=== PATIENT | male | born 1990 | race Caucasian/White ===

== ENCOUNTER 2016-09-27 22:23 | Emergency (ER) | payer SELFPAY ==
[~2016-09-27] VITALS: Ht 180.3 cm; Wt 132.4 kg
[2016-09-27 22:26] VITALS: BP 143/84
[2016-09-27] MEDS ORDERED: FAMOTIDINE 20 MG/2 ML IVP ONE (23:00)
[2016-09-27] MEDS ORDERED: MAALOX/HYOSCYAMINE/LIDOCAINE 45 ML BOTTLE PO ONE (23:00)
[2016-09-27] MEDS ORDERED: ONDANSETRON 2MG/ML, 2ML IVPush ONE (23:00)
[2016-09-27] MEDS ORDERED: SODIUM CHLORIDE 0.9% 1,000ML IVBOLUS ONE (23:00)
[2016-09-27] MEDS ORDERED: SODIUM CHLORIDE FLUSH 10ML SYR IVF ONE (23:00)
[2016-09-27] MEDS ORDERED: MAALOX/HYOSCYAMINE/LIDOCAINE 45 ML BOTTLE ONE (23:18)
[2016-09-27] MEDS ORDERED: FAMOTIDINE 20 MG/2 ML ONE (23:19)
[2016-09-27] MEDS ORDERED: ONDANSETRON 2MG/ML, 2ML ONE (23:19)
[2016-09-27 23:29] LABS: ASPARTATE AMINO TRANSFERASE 16 U/L (15-37); BLOOD UREA NITROGEN 10 mg/dL (7-18)
[2016-09-27] MEDS ORDERED: PROMETHAZINE 25 MG/ML, 1ML ONE (23:50)
[2016-09-28] MEDS ORDERED: PROMETHAZINE 25 MG/ML, 1ML IM ONE
== END 2016-09-28 00:37 | disposition home or self-care (01) ==
LOC: ED 23:59
DX: R19.7 Diarrhea, unspecified (principal); R11.2 Nausea with vomiting, unspecified; R10.9 Unspecified abdominal pain; Z87.891 Personal history of nicotine dependence
CPT/HCPCS: 36415; 74020; 80053; 83690; 85025; 96361; 96372; 96374; 96375; 99285; J2405; J2550; J7030; S0028